=== PATIENT | male | born 2000 | race Caucasian/White ===

== ENCOUNTER 2019-10-26 16:13 | Emergency (ER) | payer OTHER ==
[2019-10-26] MEDS ORDERED: Sodium Chloride 0.9% 10 ML Syringe FLUSH PRN (16:23)
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
[2019-10-26] MEDS ORDERED: Lactated Ringers 1,000 ML IV ONE (16:29)
[2019-10-26] MEDS ORDERED: Famotidine 20 MG/2 ML SDV IVPUSH ONE (16:29)
[2019-10-26 16:53] LABS: CHLORIDE,CL 105 mmol/L (98-107); SODIUM,NA 142 mmol/L (136-145)
[2019-10-26] MEDS ORDERED: Bacitracin/Neomycin/Polymyxin B Oint 0.9 GM U/D Packet TOP ONE (17:02)
[2019-10-26 17:09] LABS: PTT,PARTIAL THROMBOPLSTIN TIME 24.5 SEC (24.5-32.8)
== END 2019-10-26 17:55 | disposition home or self-care (01) ==
LOC: LL.ED 16:13
DX: S06.0X0A Concussion without loss of consciousness, initial encounter (principal); S63.502A Unspecified sprain of left wrist, initial encounter; J30.9 Allergic rhinitis, unspecified; E87.6 Hypokalemia; Z77.22 Contact with and (suspected) exposure to environmental tobacco smoke (acute) (chronic); V86.56XA Driver of dirt bike or motor/cross bike injured in nontraffic accident, initial encounter; Y92.410 Unspecified street and highway as the place of occurrence of the external cause
CPT/HCPCS: 36415; 70450; 71045; 73110; 80053; 80307; 82150; 83605; 83690; 83735; 84550; 85025; 85610; 85730; 96374; 99284; J3490